=== PATIENT | male | born 1980 | race Caucasian/White ===

== ENCOUNTER 2024-02-09 11:59 | Emergency (ER) | payer MEDICAID, SELFPAY ==
[2024-02-09] VITALS (28 sets, daily range): BP systolic 130–201; BP diastolic 75–116; PULSE 42–86; RESP 9–26; TEMP 37.3; O2SAT 99
--- NOTE | 2024-02-09 12:15 | DI.CT_ITS ---
Exam(s) CT ABDOMEN PELVIS W EXAM: CT ABDOMEN PELVIS W CLINICAL HISTORY: RLQ pain. TECHNIQUE: Imaging Protocol: Axial computed tomography images with coronal and sagittal reformatted images were created and reviewed CONTRAST MATERIAL: Intravenous: Omnipaque-350 100cc Oral: None COMPARISON: No exams were available for comparison FINDINGS: VISUALIZED LUNG BASES: No nodules nor pleural effusions evident. ABDOMEN: There is no ascites. LIVER: There are no focal hepatic lesions evident. No dilated intrahepatic ducts. GALLBLADDER/BILIARY: No obvious gallbladder pathology. CBD is not dilated. PANCREAS: No evidence of pancreatic mass nor dilatation of the pancreatic duct. SPLEEN: Spleen is not enlarged. No obvious intrasplenic lesions. Splenic and portal veins are paten t. ADRENALS: There are no significant adrenal masses. KIDNEYS:Left kidney unremarkable. There is mild prominence of the right collecting system. There is a calculus in the lower right ureter just above the UV junction which measures 3 mm. Ureter above t his level is mildly dilated. There is mild unilateral right perinephric streaking and slight delayed nephrogram on the right side. Urinary bladder wall is diffusely thickened and slightly asymmetrically. More so on the left than th e right side. Suspect cystitis or other pathology. There are no radiopaque calculi evident bladder lumen.. ABDOMINAL AORTA: Abdominal aorta is not enlarged. LYMPH NODES:There is no retroperitoneal nor paraaortic adenopathy. ABDOMINAL WALL: No evidence of significant anterior abdominal wall nor inguinal hernia. GI: There is no evidence of bowel obstruction, free air, nor abscess. PELVIS: GI: No evidence of appendicitis.No evidence of sigmoid diverticulitis. LYMPH NODES: There is no intrapelvic nor inguinal adenopathy. REPRODUCTIVE: Prostate size normal. Seminal vesicles unremarkable. URINARY BLADDER: Abnormally thickened wall, more so left than right. OSSEOUS: No fractures and no significant osseous lesions. Mild degenerative disc disease at L4-5 level. Disc space narrowing but no listhesis at this level. IMPRESSION: 1. The main finding here is a 3 millimeter calculus in the lower right ureter just above the UVJ and mild dilatation of the right collecting system above this level. No remaining calculi in the right k idney. Left kidney unremarkable. 2. Urinary bladder wall is thickened, more so on the left than the right side. This requires appropr iate follow-up with urology. Called by myself to ER physician. RADIATION DOSE DELIVERED: 662.95mGy.cm Total DLP DATA REPOSITORY: All CT scans at this facility are submitted to the National Radiology Data Registry (NRDR) Dose Index Registry (DIR) with the [employer] (ACR). RADIATION OPTIMIZATION: All CT scans at this facility use at least one of these dose optimization te chniques: automated exposure control; mA and/or kV adjustment per patient size (includes targeted exa ms where dose is matched to clinical indication); or iterative reconstruction.
--- NOTE | 2024-02-09 12:34 | W.ED.GENAD ---
Discharge Plan Disposition Patient Disposition: Home Condition: Good Discharge Details Clinical Impression: Nephrolithiasis Primary Care Provider: Paewl Clarke ED Provider: Angelita Miguel Home Meds and New Rx's Prescriptions: Continued azithromycin 250 MG tablet 250 mg PO DIRECTED Qty: 6 0RF Patient Comments: 11/13/14 pt states he lost these states he only took the initial dose then cannot find them Rx Instructions: Take two tablets now, then one daily for 4 days. methylprednisolone 4 MG tablets,dose pack 4 mg PO DIRECTED Qty: 1 0RF Rx Instructions: start on 11/11/14 cyclobenzaprine 10 MG tablet 10 mg PO BID Qty: 20 0RF hydrocodone-acetaminophen 1 EACH tablet 1 ea PO Q4H Qty: 15 0RF hydrocodone-acetaminophen 1 TAB tablet 1 tab PO Q6H PRN PRNQty: 20 0RF prednisone 10 MG tablet 10 mg PO DAILY Qty: 63 0RF Rx Instructions: TAKE 60 MG FOR 3DAYS, 50 MG FOR 3 DAYS, 40 MG FOR 3 DAYS, 30 MG FOR 3 DAYS, 20 MG FOR 3 DAYS, 10 MG FOR 3 DAYS THEN STOP ibuprofen 600 MG tablet 600 mg PO QID PRN PRNQty: 40 1RF Discharge Instructions Instructions: Kidney Stones (ED) Additional Instructions: Imaging shows a small kidney stone that looks like it is about to pass into your bladder. This correlates with the right lower abdominal pain you have been having. It should pass on its own. Please encourage hydration. Anti-inflammatory such as ibuprofen typically work best to help with pain. Please take as directed on packaging. You may also augment this with Tylenol. I have referred you to urology for follow-up. Please also follow-up with primary care. If you develop fever/chills, increased pain, inability stay hydrated or other new/worsening symptom please seek care urgently once again. Referrals: Pawel Clarke MD [Primary Care Provider] - Talon Mariano MD [ [facility] STAFF PHYSICIAN] - Discharge Data Discharge Date/Time-TO BE ENTERED AT DEPARTURE: 02/09/24 15:27 HPI General Date/Time Provider Initiated Documentation: 02/09/24 12:16. Limitations to Documentation: no limitations. Information obtained by: patient and RN notes reviewed. History of Present Illness 43 year old M presents to the emergency department with the chief complaint of Right-sided flank pain and right lower quadrant pain, described as moderate, Quality is described as stabbing, and is localized to the abdomen. Patient reports no radiation. Patient started experiencing this day(s) (2) and it has been intermittent. No relieving factors improve symptom(s), No exacerbating factors reported . Patient notes nausea/vomiting; denies chest pain, diaphoresis, fever/chills, headaches, loss of appetite, malaise, rash, shortness of breath, syncope and weakness. Patient did receive the following treatments prior to arrival, none Related Data Home Medications Medication Instructions Recorded Confirmed azithromycin 250 mg tablet 250 mg PO DIRECTED #6 tabs 11/09/14 10/16/15 cyclobenzaprine 10 mg tablet 10 mg PO BID #20 tabs 11/10/14 10/16/15 hydrocodone 5 mg-acetaminophen 325 1 ea PO Q4H ##15 11/10/14 10/16/15 mg tablet methylprednisolone 4 mg tablets in 4 mg PO DIRECTED ##1 11/10/14 10/16/15 a dose pack hydrocodone 5 mg-acetaminophen 325 1 tab PO Q6H PRN PRN #20 tabs 11/13/14 10/16/15 mg tablet prednisone 10 mg tablet 10 mg PO DAILY ##63 11/13/14 10/16/15 ibuprofen 600 mg tablet 600 mg PO QID PRN PRN #40 tabs 10/16/15 Previous Rx's Medication Instructions Recorded azithromycin 250 mg tablet 250 mg PO DIRECTED #6 tabs 11/09/14 cyclobenzaprine 10 mg tablet 10 mg PO BID #20 tabs 11/10/14 hydrocodone 5 mg-acetaminophen 325 1 ea PO Q4H ##15 11/10/14 mg tablet methylprednisolone 4 mg tablets in 4 mg PO DIRECTED ##1 11/10/14 a dose pack hydrocodone 5 mg-acetaminophen 325 1 tab PO Q6H PRN PRN #20 tabs 11/13/14 mg tablet prednisone 10 mg tablet 10 mg PO DAILY ##63 11/13/14 ibuprofen 600 mg tablet 600 mg PO QID PRN PRN #40 tabs 10/16/15 Allergies Allergy/AdvReac Type Severity Reaction Status Date / Time No Known Allergies Allergy Unverified 02/09/24 12:07 General Stated Complaint: Abd Prob RONI: 3 Review of Systems Constitutional Constitutional: Reports as per HPI, Denies chills, Denies fever(s) and Denies headache(s) ENT Ears, Nose, Mouth, and Throat: Denies headache(s) Cardiovascular Cardiovascular: Reports as per HPI, Denies chest pain and Denies dyspnea Respiratory Respiratory: Reports as per HPI, Denies cough and Denies dyspnea Gastrointestinal Gastrointestinal: Reports as per HPI Genitourinary Genitourinary: Reports as per HPI Musculoskeletal Musculoskeletal: Reports as per HPI Neurologic Neurologic: Denies headache(s) Exam Const General: cooperative, comfortable, no acute distress, well developed and intoxicated appearing Nutritional Appearance: average body habitus and well nourished Orientation: alert and awake Eyes Pupils: pinpoint Resp Effort & Inspection: normal respiratory effort and no respiratory distress Auscultation: clear to auscultation bilaterally, no rales, no rhonchi and no wheezes Cardio Rate: regular rate Rhythm: regular rhythm Heart Sounds: S1 normal and S2 normal GI Inspection: normal to inspection, no edema and non-distended Palpation: soft, no hepatosplenomegaly, no guarding, no hernias, no pulsatile masses and tender in the RLQ Percussion: normal to percussion Auscultation: normal bowel sounds Back/Spine/Pelvis Back: no CVA tenderness Skin General skin exam: no rashes or lesions noted Neuro General: patient alert and patient awake Speech: speech normal Gait: normal gait Course Vital Signs Vital signs: Vital Signs Temperature 37.3 C 02/09/24 12:05 Pulse 45 L 02/09/24 12:05 Respiratory Rate 12 02/09/24 12:05 Blood Pressure 130/75 02/09/24 12:05 Pulse Oximetry 99 02/09/24 12:05 Temperature 37.3 C 02/09/24 12:05 Temperature Source Skin 02/09/24 12:05 Pulse 45 L 02/09/24 12:05 Respiratory Rate 12 02/09/24 12:05 Respiratory Effort Normal 02/09/24 12:07 Blood Pressure 130/75 02/09/24 12:05 Blood Pressure Position Sitting 02/09/24 12:05 Pulse Oximetry 99 02/09/24 12:05 Oxygen Delivery Method Room Air 02/09/24 12:05 Oxygen Flow Rate 0 02/09/24 12:05 Medical Decision Making Patient is a 43-year-old male with no significant past medical history, presents today with a complaint of right lower quadrant pain that he reports began 2 days ago. Endorses nausea and vomiting. States that he vomited x 5 in total. No hemoptysis. States that he has been constipated x 4 days. Has been using large amounts of crack cocaine. States that he last used about 24 hours ago, now very fatigued, slept overnight and continues to doze off during our conversation now. He denies any previous abdominal surgeries. Denies any change in his urinary habits. No blood in his stool or urine. Pain does not radiate On exam, patient appears nontoxic, he does appear inebriated. His pupils are pinpoint. He is lethargic and falls asleep quickly. He is bradycardic. Normotensive. Satting at 99% on room air. Lungs are clear, normal cardiac exam. He denies any chest pain or shortness of breath. Abdominal pain is along the right lower quadrant, more lateral than typical McBurney's point. No pain elsewhere about the abdomen although he does report some general discomfort. No testicular or penile pain. No CVA tenderness. No rash or evidence of trauma. Concern for potential appendicitis. Will obtain imaging and labs. Also concerned about cocaine washout given the patient's current mental status and cessation after using large quantities of cocaine for several days. Will hydrate the patient. He does not appear septic, do not suspect bacteremia at this time. Labs without significant abnormality. CT reviewed by radiology: FINDINGS: VISUALIZED LUNG BASES: No nodules nor pleural effusions evident. ABDOMEN: There is no ascites. LIVER: There are no focal hepatic lesions evident. No dilated intrahepatic ducts. GALLBLADDER/BILIARY: No obvious gallbladder pathology. CBD is not dilated. PANCREAS: No evidence of pancreatic mass nor dilatation of the pancreatic duct. SPLEEN: Spleen is not enlarged. No obvious intrasplenic lesions. Splenic and portal veins are patent. ADRENALS: There are no significant adrenal masses. KIDNEYS:Left kidney unremrkable. There is mild prominence of the right collecting system. There is a calculus in the lower right ureter just above the UV junction which measures 3 mm. Ureter above this level is mildly dilated. There is mild unilateral right perinephric streaking and slight delayed nephrogram on the right side. Urinary bladder wall is diffusely thickened and slightly asymmetrically. More so on the left than the right side. Suspect cystitis or other pathology. There are no radiopaque calculi evident bladder lumen.. ABDOMINAL AORTA: Abdominal aorta is not enlarged. LYMPH NODES:There is no retroperitoneal nor paraaortic adenopathy. ABDOMINAL WALL: No evidence of significant anterior abdominal wall nor inguinal hernia. GI: There is no evidence of bowel obstruction, free air, nor abscess. PELVIS: GI: No evidence of appendicitis.No evidence of sigmoid diverticulitis. LYMPH NODES: There is no intrapelvic nor inguinal adenopathy. REPRODUCTIVE: Prostate size normal. Seminal vesicles unremarkable. URINARY BLADDER: Abnormally thickened wall, more so left than right. OSSEOUS: No fractures and no significant osseous lesions. Mild degenerative disc disease at L4-5 level. Disc space narrowing but no listhesis at this level. IMPRESSION: 1. The main finding here is a 3 millimeter calculus in the lower right ureter just above the UVJ and mild dilatation of the right collecting system above this level. No remaining calculi in the right kidney. Left kidney unremarkable. 2. Urinary bladder wall is thickened, more so on the left than the right side. This requires appropriate follow-up with urology. Discussed findings with patient. He is receiving hydration. He is not reporting that pain is much more severe. Give acetaminophen, ketorolac and Flomax. I am hesitant to give this patient any more narcotics given the depressed state when he first came in. I am concerned that if this pain should ease at all, as is classic with kidney stones, he may have a worsening lethargy. Will obtain urine to ensure no infection. Patient also appears constipated on CT, will address pain for stone and then discuss care for constipation. Urinalysis without evidence of infection. Resting much more comfortably. Discussed these findings with the patient, and encouraged hydration. Patient is positive for methadone, cocaine, THC. Did not feel that augmenting this with narcotics for pain is appropriate. Will refer to him to urology for continued management and follow-up of his kidney stone. Return precautions were discussed. Encouraged supportive care and [id number] softeners for his constipation. Sister will be picking him up and drive him home. All of his questions and concerns were addressed, he is in agreeent with this plan. More awake and cooperative at this time. Referral to urology sent, he aggrees to f/u. Quality:SDOH Health Related Social Needs: No Data to Display PFSH All Active Problems (Updated 02/09/24 @ 15:16 by JULIA Vázquez) Nephrolithiasis (Chronic) Family History Mother , MVA No problems noted. Social History Smoking/Tobacco Use Status: Current every day Smoking risk assessment performed?: Yes Substance use type: crack/cocaine Details: pt unable to remain awake for this triage, keeps nodding in and out
[2024-02-09 12:55] LABS: Abs Immature Grans 0.03 10^3/uL (0.0-0.06); Absolute Monocyte Count 0.59 10^3/uL (0.1-0.8); Absolute Neutrophil Count 8.03 10^3/uL (1.2-6.7); HCT 43.1 % (40.0-50.0); HGB 13.8 g/dL (13.5-17.5); Immature Grans % 0.3 %; Lymphocytes % 12.2 %; MCH 26.6 pg (27.0-33.0); MCV 83 fL (80-95); MPV 10.1 fL (8.0-11.0); Neutrophils % 81.5 %; Platelet Count 284 10^3/uL (130-400); RBC 5.19 10^6/uL (4.36-5.78); RDW 15.3 % (11.8-14.1); RDW-SD 46.5 fL; WBC 9.85 10^3/uL (4.4-10.8)
[2024-02-09] MEDS: Lactated Ringers 1,000 ML 1000 ML IV ×2 (12:55→14:19)
[2024-02-09] MEDS: Normal Saline - Diluent 50 ML VIAL IJ (13:03)
[2024-02-09] MEDS: Omnipaque 350 MG/ML 50 ML BTL IJ ×2 (13:04→13:10)
[2024-02-09 13:13] LABS: ALT 22 U/L (16-63); AST 20 U/L (15-37); Albumin 3.5 g/dL (3.4-5.0); Alkaline Phosphatase 77 U/L (46-116); Anion Gap 9.3 mmol/L (3-11); BUN 14 mg/dL (7-18); Bilirubin, Total 0.5 mg/dL (0.2-1.0); CO2 27.7 mmol/L (21.0-32.0); CREATININE 1.4 mg/dL (0.70-1.30); Chloride 103 mmol/L (98-107); Estimated GFR 63.17 (mL/min/1.73m2); Glucose 125 mg/dL (74-106); Lipase 110 U/L (16-77); Magnesium 2.1 mg/dL (1.8-2.4); Sodium 140 mmol/L (136-145); Total Protein 7.7 g/dL (6.4-8.2)
[2024-02-09] MEDS: ACETAMINOPHEN 1,000 MG/100 ML BTL 400 MG IVPB (13:32)
[2024-02-09] MEDS: Ketorolac 15 MG/ML VIAL IVP (13:32)
[2024-02-09] MEDS: Tamsulosin 0.4 MG CAPCR PO (13:50)
[2024-02-09 14:34] LABS: Bilirubin Negative (Negative); Blood Moderate (Negative); Clarity Clear (Clear); Glucose Negative (Negative); Ketones 15 mg/dL (Negative); Leukocyte Esterase Negative (Negative); Nitrite Negative (Negative); Specific Gravity 1.015 (1.005-1.025); Urobilinogen 0.2 mg/dL (Up to 0.2)
[2024-02-09 14:52] LABS: Bacteria Negative HPF (Negative); C & S Indicated? No; Casts Negative LPF (Negative); Crystals Negative HPF (Negative); Epithelial Cells Rare HPF (Negative); Mucus Negative (Negative); WBC 0-2 HPF (0-5)
[2024-02-09 14:54] LABS: *AMPHETAMINES SCREEN URINE Negative (Negative); *BARBITURATES SCREEN URINE Negative (Negative); *BENZODIAZEPINES SCREEN URINE Negative (Negative); Cannabinoids THC Positive (Negative); Cocaine Screen,Urine Positive (Negative); METHADONE URINE SCREEN Positive (Negative); OPIATES URINE SCREEN Negative (Negative)
[2024-02-09 15:02] LABS: Tricyclic Antidepressants Negative (Negative)
--- NOTE | 2024-02-09 15:46 | NUR.NOTE ---
Referral faxed to [facility] Urology for kidney stone, follow to be determined by Urology. Nursing Note:
== END 2024-02-09 15:27 | disposition home or self-care (01) ==
PROVIDERS: Emergency Provider Physician Assistant; PCP Family Medicine
DX: R20.0 Anesthesia of skin (principal); R11.2 Nausea with vomiting, unspecified; F17.210 Nicotine dependence, cigarettes, uncomplicated
CPT/HCPCS: 80053; 80307; 83690; 96361; 96374; 96375; 99285; 74177; 81003; 81015; 83735; 85025; 99284; J0131; J1885; Q9967

== ENCOUNTER 2024-02-29 16:12 | Emergency (ER) | payer OTHER, SELFPAY ==
[2024-02-29 16:15] VITALS: BP 131/77; PULSE 69; RESP 15; TEMP 37; O2SAT 99
--- NOTE | 2024-02-29 16:15 | DI.CT_ITS ---
Exam(s) CT ABDOMEN PELVIS W EXAM: CT ABDOMEN PELVIS W CLINICAL HISTORY: Constipation, R/O Foreign body. TECHNIQUE: Imaging Protocol: Axial computed tomography images with coronal and sagittal reformatted images were created and reviewed CONTRAST MATERIAL: Intravenous: Omnipaque-350 100cc Oral: None COMPARISON: No exams were available for comparison FINDINGS: VISUALIZED LUNG BASES: No nodules nor pleural effusions evident. ABDOMEN: There is no ascites. LIVER: There are no focal hepatic lesions evident. GALLBLADDER/BILIARY: No obvious gallbladder pathology. CBD is not dilated. PANCREAS: No evidence of pancreatic mass nor dilatation of the pancreatic duct. SPLEEN: Spleen is not enlarged. No obvious intrasplenic lesions. Splenic and portal veins are paten t. ADRENALS: There are no significant adrenal masses. KIDNEYS:No cysts evident. No solid renal masses. No calculi nor hydronephrosis.. ABDOMINAL AORTA: Abdominal aorta is not enlarged. LYMPH NODES:There is no retroperitoneal nor paraaortic adenopathy. ABDOMINAL WALL: No evidence of significant anterior abdominal wall nor inguinal hernia. GI: There is abundant fecal material noted throughout the entire colon including the rectum. No evid ence of bowel obstruction, free air, nor abscess. No evidence of radiopaque foreign body in the gut, as per request. PELVIS: GI: No evidence of appendicitis.No evidence of sigmoid diverticulitis. LYMPH NODES: There is no intrapelvic nor inguinal adenopathy. REPRODUCTIVE: Prostate size normal. Seminal vesicles unremarkable. URINARY BLADDER: No calculi nor obvious masses evident OSSEOUS: Chronic disc space narrowing L4-5 level. No fracture nor listhesis. IMPRESSION: 1. Main finding here is abundant fecal material throughout the colon and the colon is mildly distende d. No colitis pattern. No diverticular disease. Consistent with constipation. No radiopaque forei gn body, as per request 2. Previously described calculus in the lower right ureter is less evident on the present study. The re also no calculi evident in the urinary bladder. Prostate size normal. RADIATION DOSE DELIVERED: 788.53mGy.cm Total DLP DATA REPOSITORY: All CT scans at this facility are submitted to the National Radiology Data Registry (NRDR) Dose Index Registry (DIR) with the [employer] (ACR). RADIATION OPTIMIZATION: All CT scans at this facility use at least one of these dose optimization te chniques: automated exposure control; mA and/or kV adjustment per patient size (includes targeted exa ms where dose is matched to clinical indication); or iterative reconstruction.
[2024-02-29 16:16] VITALS: BP 131/77; PULSE 69; RESP 15; TEMP 37; O2SAT 99
--- NOTE | 2024-02-29 16:23 | W.ED.GENAD ---
Discharge Plan Disposition Patient Disposition: [facility] Condition: Stable Discharge Details Clinical Impression: Constipation Primary Care Provider: Pawel Clarke ED Provider: Marilu Chong Home Meds and New Rx's Prescriptions: Continued ibuprofen 600 MG tablet 600 mg PO QID PRN PRNQty: 40 1RF methadone 10 mg/5 mL solution 140 mg PO DAILY Discharge Instructions Instructions: Magnesium Citrate (By mouth), Constipation (ED) Additional Instructions: Please take the magnesium citrate as directed. You may drink half here happening at home. It should produce a stool in the next 12 to 24 hours. Increase oral fluids you may also try glycerin suppositories which she can get [id number], MiraLAX or similar or prune juice. No evidence of foreign body noted on the CT examination today. Follow up with primary care provider in 3-5 days. Return to ED sooner if any worsening or concerns. Referrals: Pawel Clarke MD [Primary Care Provider] - Return if symptoms worsen Discharge Data Discharge Date/Time-TO BE ENTERED AT DEPARTURE: 02/29/24 17:17 HPI General Mode of arrival: ambulatory. Date/Time Provider Initiated Documentation: 02/29/24 16:14. Limitations to Documentation: no limitations. Information obtained by: patient, police, RN notes reviewed and old records reviewed. HPI Narrative: 43-year-old male presents to the ER with a chief complaint of possible foreign body, versus constipation. Patient is here in police custody from the shelter with possible reports of passing large amounts of drugs at the shelter prior to arrival. Patient denies any drugs he reports that he does have a history of constipation and have has not had a bowel movement in the last 8 days. Vital signs are stable at this time. There are 2 officers at bedside with patient. Related Data Home Medications Medication Instructions Recorded Confirmed ibuprofen 600 mg tablet 600 mg PO QID PRN PRN #40 tabs 10/16/15 02/29/24 methadone 10 mg/5 mL oral solution 140 mg PO DAILY 02/29/24 02/29/24 Previous Rx's Medication Instructions Recorded ibuprofen 600 mg tablet 600 mg PO QID PRN PRN #40 tabs 10/16/15 Allergies Allergy/AdvReac Type Severity Reaction Status Date / Time No Known Allergies Allergy Unverified 02/29/24 16:26 General Stated Complaint: Abd Prob RONI: 3 Review of Systems All systems reviewed & are unremarkable except as noted in HPI and below Gastrointestinal Gastrointestinal: Denies abdominal pain and Reports constipation (X 8 days) Exam Narrative Exam Narrative: Constitutional: Alert and oriented x3. Appears stated age. Normal body habitus. Head: Normocephalic, no trauma. Eyes: Pupils PERRL, Red reflex noted, EOM's intact. Eyelids symmetrical without lesions, discharge, or swelling. Chest: RRR, Normal S1, S2, distal pulses intact. Resp: Lungs clear to auscultation bilaterally, no wheezes, rales, or rhonchi. Abdomen: Soft, non-distended, nontender all 4 quadrants. Musculoskeletal: Normal gait, Moves all 4 extremities without difficulty. Skin: No suspicious rashes or lesions. Capillary refill less than 2 sec. Neurologic: Cranial nerves II-XII intact. Alert and oriented x 3. Motor: No deficits noted. Sensory: Intact bilaterally all 4 extremities. Hematologic/Lymphatic: No ecchymosis, no lymphadenopathy. Course Vital Signs Vital signs: Vital Signs Temperature 37.0 C 02/29/24 16:15 Pulse 69 02/29/24 16:15 Respiratory Rate 15 02/29/24 16:15 Blood Pressure 131/77 02/29/24 16:15 Pulse Oximetry 99 02/29/24 16:15 Temperature 37.0 C 02/29/24 16:16 Temperature Source Oral 02/29/24 16:16 Pulse 69 02/29/24 16:16 Respiratory Rate 15 02/29/24 16:16 Blood Pressure 131/77 02/29/24 16:16 Blood Pressure Position Sitting 02/29/24 16:16 Pulse Oximetry 99 02/29/24 16:16 Oxygen Delivery Method Room Air 02/29/24 16:16 Oxygen Flow Rate 0 02/29/24 16:16 Medical Decision Making 43-year-old male presents to the ER with a chief complaint of possible foreign body, versus constipation. Patient is here in police custody from the shelter with possible reports of passing large amounts of drugs at the shelter prior to arrival. Patient denies any drugs he reports that he does have a history of constipation and have has not had a bowel movement in the last 8 days. Vital signs are stable at this time. There are 2 officers at bedside with patient. CT abdomen pelvis with IV contrast ordered due to constipation rule out foreign body. UDS ordered. CT abdomen negative for foreign body does show moderate to severe constipation. Will give magnesium citrate drink half here and half off site. Will instruct on use and follow-up care if needed. Patient discharged into the care of correctional officers. Remained hemodynamically stable alert and oriented throughout the remainder of stay. Discussed CT results verbalized understanding. This text was generated using [employer] dictation system, please disregard any oddities of phrase or misspellings. Medical Records Medical records reviewed: Yes I reviewed the patient's medical records. Imaging Data Radiologic Study: Imaging: CT Scan Radiologist's impression: FINDINGS: VISUALIZED LUNG BASES: No nodules nor pleural effusions evident. ABDOMEN: There is no ascites. LIVER: There are no focal hepatic lesions evident. GALLBLADDER/BILIARY: No obvious gallbladder pathology. CBD is not dilated. PANCREAS: No evidence of pancreatic mass nor dilatation of the pancreatic duct. SPLEEN: Spleen is not enlarged. No obvious intrasplenic lesions. Splenic and portal veins are patent. ADRENALS: There are no significant adrenal masses. KIDNEYS:No cysts evident. No solid renal masses. No calculi nor hydronephrosis.. ABDOMINAL AORTA: Abdominal aorta is not enlarged. LYMPH NODES:There is no retroperitoneal nor paraaortic adenopathy. ABDOMINAL WALL: No evidence of significant anterior abdominal wall nor inguinal hernia. GI: There is abundant fecal material noted throughout the entire colon including the rectum. No evidence of bowel obstruction, free air, nor abscess. No evidence of radiopaque foreign body in the gut, as per request. PELVIS: GI: No evidence of appendicitis.No evidence of sigmoid diverticulitis. LYMPH NODES: There is no intrapelvic nor inguinal adenopathy. REPRODUCTIVE: Prostate size normal. Seminal vesicles unremarkable. URINARY BLADDER: No calculi nor obvious masses evident OSSEOUS: Chronic disc space narrowing L4-5 level. No fracture nor listhesis. IMPRESSION: 1. Main finding here is abundant fecal material throughout the colon and the colon is mildly distended. No colitis pattern. No diverticular disease. Consistent with constipation. No radiopaque foreign body, as per request 2. Previously described calculus in the lower right ureter is less evident on the present study. There also no calculi evident in the urinary bladder. Prostate size normal. Quality:SDOH Health Related Social Needs: No Data to Display [facility] All Active Problems (Updated 02/29/24 @ 17:07 by Marilu Chong NP) Constipation (Acute) Nephrolithiasis (Chronic) Family History Mother , MVA No problems noted. Social History Smoking/Tobacco Use Status: Current every day Smoking risk assessment performed?: Yes Substance use type: crack/cocaine Details: pt unable to remain awake for this triage, keeps nodding in and out
[2024-02-29] MEDS: Omnipaque 350 MG/ML 100 ML BTL IJ (16:42)
[2024-02-29] MEDS: Normal Saline - Diluent 50 ML VIAL IJ (16:43)
[2024-02-29] MEDS: Magnesium Citrate 300 ML BTL PO (17:16)
== END 2024-02-29 17:17 ==
PROVIDERS: Emergency Provider Registered Nurse Emergency; PCP Family Medicine
DX: K59.00 Constipation, unspecified (principal)
CPT/HCPCS: 99285; 74177; 99283; J3490

== ENCOUNTER 2024-12-27 14:52 | Emergency (ER) | payer OTHER, SELFPAY ==
[2024-12-27 14:56] VITALS: BP 111/79; PULSE 100; RESP 14; TEMP 36.8; O2SAT 98
[2024-12-27] MEDS: Lidocaine/Epinephri/Tetracaine Topical Gel 3 ML TP (15:22)
[2024-12-27] MEDS: Diph,Pertuss(Acell),Tet Vac/Pf 0.5 ML SYR IM (15:23)
[2024-12-27] MEDS: Lidocaine 1% Pres-Free 5 ML VIAL IJ (15:23)
--- NOTE | 2024-12-27 18:42 | ED.GENADUL_ITS ---
Discharge Plan Disposition Patient Disposition: Home Discharge Details Clinical Impression: Finger laceration Primary Care Provider: Pawel Clarke ED Provider: James Mckeon Home Meds and New Rx's Prescriptions: New sulfamethoxazole-trimethoprim [Bactrim DS] 800-160 mg tablet 1 tab PO BID 5 Days Qty: 10 0RF No Action ibuprofen 600 MG tablet 600 mg PO QID PRN PRNQty: 40 1RF methadone 10 mg/5 mL solution 140 mg PO DAILY Discharge Instructions Instructions: Laceration Repair With Stitches ED Additional Instructions: finger laceration repaired with stitches. stitches will dissolve and will not need to be removed prophylactic antibiotics should be given to prevent infection. allow hand washing with soap and water. pat dry please allow to cover with bandage when outside when working in kitchen, please allow bandage AND gloves Discharge Data Discharge Date/Time-TO BE ENTERED AT DEPARTURE: 12/27/24 15:51 HPI General Date/Time Provider Initiated Documentation: 12/27/24 15:01 . Limitations to Documentation: no limitations . Information obtained by: patient . HPI Narrative: 44-year-old gentleman without significant past medical history presents for evaluation of finger laceration. 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 He reports that there was a lot of meat on it and the plates had just been sharpened. He reports that the motor was not running but as he was cleaning it he hit his right ring fingeR. Tetanus is not up-to-date. He reports bleeding was controlled with bandage to place. He denies any numbness or tingling or difficulty moving his finger. Related Data Home Medications ?Medication ?Instructions ?Recorded ?Confirmed ibuprofen 600 mg tablet 600 mg PO QID PRN PRN #40 tabs 10/16/15 02/29/24 methadone 10 mg/5 mL oral solution 140 mg PO DAILY 02/29/24 02/29/24 sulfamethoxazole 800 1 tab PO BID 5 days #10 tabs 12/27/24 mg-trimethoprim 160 mg tablet (Bactrim DS) Previous Rx's ?Medication ?Instructions ?Recorded ibuprofen 600 mg tablet 600 mg PO QID PRN PRN #40 tabs 10/16/15 sulfamethoxazole 800 1 tab PO BID 5 days #10 tabs 03/19/25 mg-trimethoprim 160 mg tablet (Bactrim DS) Allergies Allergy/AdvReac Type Severity Reaction Status Date / Time No Known Allergies Allergy Unverified 12/27/24 15:01 General Stated Complaint: Laceration RONI: 4 Exam Narrative Exam Narrative: Review of Systems: All systems reviewed & are unremarkable except as noted in HPI and below Well-developed, no acute distress NCAT Unlabored respiratory effort Right ring finger distal tip with a 2 cm laceration, not involving the nailbed, sensation and movement intact, no foreign body, no tendon or bone exposure Course Vital Signs Vital signs: Vital Signs Temperature 36.8 C 12/27/24 14:56 Pulse 100 H 12/27/24 14:56 Respiratory Rate 14 12/27/24 14:56 Blood Pressure 111/79 12/27/24 14:56 Pulse Oximetry 98 12/27/24 14:56 Temperature 36.8 C 12/27/24 14:56 Temperature Source Oral 12/27/24 14:56 Pulse 100 H 12/27/24 14:56 Respiratory Rate 14 12/27/24 14:56 Blood Pressure 111/79 12/27/24 14:56 Pulse Oximetry 98 12/27/24 14:56 Pain Level 6 12/27/24 14:56 Procedure Laceration Laceration 1: Site: hand Side (If applicable): right Description: linear Depth: simple, single layer Local anesthetic: Lidocaine 1% (Digital block) and LET(lidocaine epinephrine tetracaine) Amount of anesthesia used (mL): 5 Skin layer closed with: chromic gut Suture size: 5-0 Number of sutures:: 4 Technique: simple, interrupted Procedure Description/Note: Right ring finger with laceration over the distal pad repaired without complication Medical Decision Making Emergent evaluation of finger laceration. Patient has very minor injury noted on the right ring finger. The patient's tetanus was updated. wound was irrigated. Given the mechanism of injury and the appearance on physical examination, I do not feel that imaging is necessary. Laceration was repaired without complication. Given that he is in senior living and that the wound was sustained on a meat cutting device, we will treat with prophylactic antibiotics. A prescription for Bactrim was provided to the guard. I used absorbable sutures so there is no need for return. Wound care instructions provided to the patient. Quality:SDOH Health Related Social Needs: No Data to Display [facility] All Active Problems (Updated 12/27/24 @ 15:41 by James Mckeon MD) Finger laceration (Acute) Family History Mother , MVA No problems noted. Social History Smoking/Tobacco Use Status: Current every day Smoking risk assessment performed?: Yes Alcohol Intake: former Substance use type: crack/cocaine Details: pt unable to remain awake for this triage, keeps nodding in and out Housing: other
== END 2024-12-27 15:51 | disposition home or self-care (01) ==
PROVIDERS: Emergency Provider Emergency Medicine; PCP Family Medicine
DX: S61.214A Laceration without foreign body of right ring finger without damage to nail, initial encounter (principal); W27.4XXA Contact with kitchen utensil, initial encounter; Y93.G1 Activity, food preparation and clean up; Y92.140 Kitchen in prison as the place of occurrence of the external cause; Z23 Encounter for immunization
CPT/HCPCS: 12001; 90471; 90715; 99283; J2003